=== PATIENT | female | born 1955 | race Caucasian/White ===

== ENCOUNTER → 2016-05-19 | Outpatient (CLI) | payer OTHER ==
[~2016-05-19] MED LIST: ATOR-22 PO; CHOL1TAB63 PO; CHOL2000 PO; CLX/20 PO; DSY/150 PO; HYDR25TA4 PO; HYDR25TA5 PO; INSU100I23 SQ; INSUINJ12 SQ; LISI-461 PO; LORA10TA5 PO; LPD600 PO; NVLGI SC; NYST100010 TD; TMPOPS15 OPB; ZCR40 PO
== END | disposition home or self-care (01) ==
LOC: C.PAPS 10:12
PROVIDERS: ATTEND Obstetrics & Gynecology
DX: N95.8 Other specified menopausal and perimenopausal disorders (principal); Z01.419 Encounter for gynecological examination (general) (routine) without abnormal findings

== ENCOUNTER → 2016-08-25 | Outpatient (CLI) | payer OTHER ==
[2016-08-25 14:40] LABS: BASO % 0.8 %; BASO ABS # 0.06 K/uL (0-0.2); COMPLETE YES; EOS % 1.7 %; HEMATOCRIT 43.8 % (37-47); IG% 0.1 %; LYMPH % 40.6 %; LYMPH ABS # 3.15 K/uL (1.2-3.4); MEAN CELL VOLUME 92.2 fL (80-100); MEAN CORPUSCULAR HGB CONC 34.7 g/dl (32-36); MEAN PLATELET VOLUME 10.9 fL (7.4-10.4); MONO % 4.9 %; NEUT % 51.9 %; PLATELET COUNT 310 K/uL (130-400); RED BLOOD COUNT 4.75 M/uL (4.2-5.4); WHITE BLOOD COUNT 7.76 K/uL (4.8-10.8)
[2016-08-25 14:59] LABS: ESTIMATED AVERAGE GLUCOSE 272 mg/dl; HA1C FLAG Normal (Normal)
[2016-08-25 15:31] LABS: CALCIUM 9.3 mg/dl (8.5-10.1)
[2016-08-25 15:45] LABS: URINE APPEARANCE CLEAR (CLEAR); URINE BILIRUBIN NEG (NEG); URINE COLOR YELLOW; URINE EPITHELIAL CELL AUTO >30 /lpf (0-5); URINE NITRITE NEG (NEG); URINE SPECIFIC GRAVITY 1.039 (1.000-1.030); UROBILINOGEN NEG (NEG); ZZUR CULT IF INDIC CLEAN CATCH YES
[2016-08-25 16:00] LABS: MANUAL MICROSCOPIC REQUIRED? NO; REVIEW REQ? NO
[2016-08-25 16:02] LABS: ALB/GLOB RATIO 0.8 (0.9-2); ALT/SGPT 132 U/L (12-78); AST/SGOT 76 U/L (15-37); BLOOD UREA NITROGEN 12 mg/dl (7-18); BUN/CREATININE RATIO 10.3 (10-20)
[2016-08-25 16:03] LABS: CARBON DIOXIDE 29 mmol/L (21-32); CHLORIDE 98 mmol/L (98-107); CHOLESTEROL 271 mg/dl (0-200); CHOLESTEROL/HDL RATIO 6.8; HDL CHOLESTEROL 40 mg/dl; POTASSIUM 4.1 mmol/L (3.5-5.1); SODIUM 136 mmol/L (136-145)
[2016-08-25 16:07] LABS: GLUCOSE 419 mg/dl (70-99)
[2016-08-25 16:26] LABS: ALKALINE PHOSPHATASE 210 U/L (45-117); BETA-HYDROXYBUTYRATE 0.88 mg/dL (0.2-2.81); TRIGLYCERIDES 1216 mg/dl (0-150)
[2016-08-25 17:18] LABS: RATIO 3108.4 mcg/mg (0-30.0)
== END | disposition home or self-care (01) ==
LOC: C.LAB1850 13:47
PROVIDERS: ATTEND Internal Medicine
DX: E11.65 Type 2 diabetes mellitus with hyperglycemia (principal); E53.8 Deficiency of other specified B group vitamins; N18.2 Chronic kidney disease, stage 2 (mild); E55.9 Vitamin D deficiency, unspecified; E11.22 Type 2 diabetes mellitus with diabetic chronic kidney disease

== ENCOUNTER → 2016-09-13 | Outpatient (CLI) | payer OTHER ==
--- NOTE | 2016-09-13 08:30 | DIAGNOSTIC IMAGING REPORT ---
Right upper quadrant ultrasound (LIVER) ABDOMEN LIMITED CLINICAL HISTORY: R74.8 Abnormal liver [id number] pain. Nausea. TECHNIQUE: Ultrasound COMPARISON STUDY: None FINDINGS: Multiple gallstones within the gallbladder lumen. Common bile duct 3 mm. Mild thyromegaly with diffuse fatty infiltration. Pancreas is unremarkable. Right kidney is negative for hydronephrosis. IMPRESSION: 1. Gallstones. 2. Normal caliber bile ducts. 3. Mild hepatomegaly with components of fatty infiltration. Electronically signed by: Jose Conrad M.D. 09/13/2016 8:29 AM Dictated Date/Time: 09/13/2016 8:27 AM
== END | disposition home or self-care (01) ==
LOC: C.ULTR 07:53
PROVIDERS: ATTEND Internal Medicine
DX: R74.8 Abnormal levels of other serum enzymes (principal); K80.20 Calculus of gallbladder without cholecystitis without obstruction

== ENCOUNTER → 2016-12-29 | Outpatient (CLI) | payer OTHER ==
--- NOTE | 2016-12-29 16:28 | MAMMOGRAPHY REPORT ---
BILATERAL DIGITAL SCREENING MAMMOGRAM TOMOSYNTHESIS WITH CAD: 12/29/2016 CLINICAL HISTORY: Routine screening. Patient has no complaints. TECHNIQUE: Breast tomosynthesis in addition to standard 2D mammography was performed. Current study was also evaluated with a Computer Aided Detection (CAD) system. COMPARISON: Comparison is made to exams dated: 10/23/2015 mammogram, 04/16/2014 mammogram, 11/17/2012 mammogram, 04/09/2010 mammogram - [facility], 11/19/2008, and 05/06/2005 mammogram - [facility]. BREAST COMPOSITION: There are scattered areas of fibroglandular density in both breasts. FINDINGS: No suspicious masses, calcifications, or areas of architectural distortion are noted in ei ther breast. There has been no significant interval change compared to prior exams. IMPRESSION: ACR BI-RADS CATEGORY 1: NEGATIVE There is no mammographic evidence of malignancy. A 1 year screening mammogram is recommended. The pa tient will receive written notification of the results. Approximately 10% of breast cancers are not detected with mammography. A negative mammographic report should not delay biopsy if a clinically suggestive mass is present. Serena Starr M.D. ah/:12/29/2016 14:15:04 Gas Attendant: Sera MEDEROS(R)(M), [facility] letter sent: Normal 1/2 BI-RADS Code: ACR BI-RADS Category 1: Negative
== END | disposition home or self-care (01) ==
LOC: C.MAMM 12:47
PROVIDERS: ATTEND Internal Medicine
DX: Z12.31 Encounter for screening mammogram for malignant neoplasm of breast (principal)

== ENCOUNTER → 2017-01-13 | Outpatient (CLI) | payer OTHER ==
[2017-01-13 16:14] LABS: CHOLESTEROL/HDL RATIO 7.3
[2017-01-13 16:21] LABS: HEPATITIS B AB NEG
[2017-01-14 06:44] LABS: ESTIMATED AVERAGE GLUCOSE 349 mg/dl; HA1C FLAG Normal (Normal)
== END | disposition home or self-care (01) ==
LOC: C.LAB1850 14:48
PROVIDERS: ATTEND Internal Medicine
DX: E78.5 Hyperlipidemia, unspecified (principal); R74.8 Abnormal levels of other serum enzymes; I12.9 Hypertensive chronic kidney disease with stage 1 through stage 4 chronic kidney disease, or unspecified chronic kidney disease; N18.2 Chronic kidney disease, stage 2 (mild); E11.22 Type 2 diabetes mellitus with diabetic chronic kidney disease; E11.21 Type 2 diabetes mellitus with diabetic nephropathy; E55.9 Vitamin D deficiency, unspecified; K75.81 Nonalcoholic steatohepatitis (NASH)

== ENCOUNTER 2017-01-14 23:45 | Emergency (ER) | payer OTHER ==
[~2017-01-14] VITALS: Ht 165.1 cm; Wt 93.9 kg
[~2017-01-14 23:45] MED LIST changes: -ATOR-22 PO; -CHOL1TAB63 PO; -CHOL2000 PO; -HYDR25TA4 PO; -INSU100I23 SQ; -NYST100010 TD; -TMPOPS15 OPB
[2017-01-14 23:47] VITALS: TEMP 37.3; Ht 165.1 cm; Wt 93.9 kg
[2017-01-15] MEDS ORDERED: XYLOCAINE 1%/SOD BICARB 20 ML VIAL INFIL ONE
[2017-01-15 00:43] LABS: BASO % 0.2 %; BASO ABS # 0.02 K/uL (0-0.2); COMPLETE YES; EOS % 1.6 %; HEMATOCRIT 43.2 % (37-47); IG% 0.3 %; LYMPH % 14.9 %; LYMPH ABS # 1.61 K/uL (1.2-3.4); MEAN CELL VOLUME 95.2 fL (80-100); MEAN CORPUSCULAR HEMOGLOBIN 30.8 pg (25-34); MEAN CORPUSCULAR HGB CONC 32.4 g/dl (32-36); MEAN PLATELET VOLUME 10.4 fL (7.4-10.4); MONO % 8.1 %; NEUT % 74.9 %; PLATELET COUNT 281 K/uL (130-400); RED BLOOD COUNT 4.54 M/uL (4.2-5.4)
[2017-01-15 01:01] LABS: BUN/CREATININE RATIO 15.5 (10-20); C-REACTIVE PROTEIN 1.66 mg/dl (0-0.29); CALCIUM 8.2 mg/dl (8.5-10.1); CREATININE 1.3 mg/dl (0.60-1.20); POTASSIUM 3.5 mmol/L (3.5-5.1)
[2017-01-15 01:11] LABS: BETA-HYDROXYBUTYRATE 0.87 mg/dL (0.2-2.81)
[2017-01-15 01:42] LABS: LYME DISEASE AB IGG NEG (NEG); LYME DISEASE AB IGM NEG (NEG)
[2017-01-15 01:49] LABS: SYNOVIAL FLUID APPEARANCE CLEAR; SYNOVIAL FLUID COLOR YELLOW; SYNOVIAL FLUID MONONUC RELAT 92.4 %; SYNOVIAL FLUID POLYNUC RELAT 7.6 %
[2017-01-15] MEDS ORDERED: NovoLIN-R INSULIN PER UNIT CHARGE IV STA (02:02)
[2017-01-15] MEDS ORDERED: SODIUM CHLORIDE 0.9% 1000ML 1,000 ML IV STA (02:02)
[2017-01-15] MEDS ORDERED: INSU100I23 SQ (02:36)
[2017-01-15] MEDS ORDERED: HYDR25TA4 PO (02:38)
[2017-01-15] MEDS ORDERED: CHOL1TAB63 PO (02:39)
[2017-01-15] MEDS ORDERED: CHOL2000 PO (02:40)
[2017-01-15] MEDS ORDERED: TMPOPS15 OPB (02:42)
[2017-01-15] MEDS ORDERED: ATOR-22 PO (02:42)
[2017-01-15 02:44] VITALS: BP 155/98; PULSE 108; O2SAT 95
[2017-01-15] MEDS ORDERED: NYST100010 TD (02:44)
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
--- NOTE | 2017-01-15 06:42 | DIAGNOSTIC IMAGING REPORT ---
RIGHT KNEE 3 VIEWS CLINICAL HISTORY: Right knee pain COMPARISON: None. DISCUSSION: No acute fractures are visualized. There are mild osteoarthritic changes. There is a tiny corticated ossicle located adjacent to the medial femoral condyle. There is a small suprapatellar joint effusion. IMPRESSION: Small supra patellar joint effusion. Mild degenerative change. Electronically signed by: Tom Dickinson M.D. 01/15/2017 6:41 AM Dictated Date/Time: 01/15/2017 6:40 AM
[2017-01-18 16:35] LABS: LYME DNA PCR CSF OR SYNOVIAL Not detected (Not Detected); LYME DNA SOURCE Synovial Fluid
== END 2017-01-15 02:47 | disposition home or self-care (01) ==
LOC: C.EDB 23:47 → C.EDC 01-15 02:47
DX: E11.65 Type 2 diabetes mellitus with hyperglycemia (principal); M25.461 Effusion, right knee; Z79.4 Long term (current) use of insulin; I10 Essential (primary) hypertension; Z83.3 Family history of diabetes mellitus; Z82.49 Family history of ischemic heart disease and other diseases of the circulatory system; Z87.891 Personal history of nicotine dependence; Z79.899 Other long term (current) drug therapy

== ENCOUNTER → 2017-07-05 | Outpatient (CLI) | payer OTHER ==
[~2017-07-05] MED LIST changes: +ATOR-22 PO; +CHOL1TAB63 PO; +CHOL2000 PO; -DSY/150 PO; +HYDR25TA4 PO; -HYDR25TA5 PO; +INSU100I23 SQ; -INSUINJ12 SQ; -LORA10TA5 PO; +LORA10TA6 PO; +NYST100010 TD; +TMPOPS15 OPB
[2017-07-05 15:26] LABS: ALBUMIN 3.6 gm/dl (3.4-5.0); ALT/SGPT 52 U/L (12-78); AST/SGOT 25 U/L (15-37); BLOOD UREA NITROGEN 14 mg/dl (7-18); CALCIUM 9.2 mg/dl (8.5-10.1); CARBON DIOXIDE 29 mmol/L (21-32); CREATININE 1.07 mg/dl (0.60-1.20); GLUCOSE 332 mg/dl (70-99); POTASSIUM 3.4 mmol/L (3.5-5.1); SODIUM 133 mmol/L (136-145)
[2017-07-05 15:30] LABS: ALKALINE PHOSPHATASE 237 U/L (45-117); CHOLESTEROL 281 mg/dl (0-200); TOTAL PROTEIN 8.1 gm/dl (6.4-8.2)
== END | disposition home or self-care (01) ==
LOC: C.LAB1850 14:04
PROVIDERS: ATTEND Internal Medicine
DX: E11.65 Type 2 diabetes mellitus with hyperglycemia (principal); Z79.4 Long term (current) use of insulin; E55.9 Vitamin D deficiency, unspecified; E53.8 Deficiency of other specified B group vitamins